=== PATIENT | female | born 1990 | race African-American/Black ===

== ENCOUNTER 2021-10-08 10:19 | Emergency (ER) | payer OTHER, MEDICAID, SELFPAY ==
[2021-10-08 10:34] VITALS: BP 119/72; PULSE 76; RESP 18; TEMP 36.8; O2SAT 99
--- NOTE | 2021-10-08 10:35 | ED.EXTPRO ---
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 She got the stick because of overfill needle boxes and the facility sent her to an urgent care to have the needlestick assessed Related Data Home Medications Medication Instructions Recorded Confirmed No Home Medications 10/08/21 10/08/21 Allergies Allergy/AdvReac Type Severity Reaction Status Date / Time No Known Allergies Allergy Verified 10/08/21 10:45 Review of Systems Review of Systems: CONSTITUTIONAL: Denies fever, chills, sweats. EYES: Denies visual changes, redness, discharge. ENT: Denies rhinorrhea, congestion, sore throat, otalgia. CARDIOVASCULAR: Denies chest pain, palpitations, edema. RESPIRATORY: Denies dyspnea, wheezing, cough GASTROINTESTINAL: Denies abdominal pain, nausea, vomiting, diarrhea. GENITOURINARY: Denies dysuria, hematuria, abnormal discharge SKIN: Denies rash or itching. NEUROLOGIC: Denies numbness, or focal weakness. PSYCHIATRIC: Denies anxiety or depression. Needlestick to left knee and left thumb small needle ford on both PMFSH Family History Family History Other Diabetes mellitus Heart disease High cholesterol Hypertension Social History Social History (Updated 10/08/21 @ 10:50 by Mary Carmen Meredith CNP) Additional smoking assessment comments: Occasional smoker Comments At time of signature, I agree with nursing past medical, surgical, social and family history. There is no relevant family history pertinent to the presenting complaint. Exam Narrative: GENERAL: This is a well-nourished, well-developed patient, in mild distress. HEAD: normocephalic, atraumatic. EYES: PERRL. Sclera clear/white. Vision is grossly intact. EARS: External ears normal,. Hearing grossly intact. NOSE: External nose normal without nasal discharge, nares without redness, no rhinorrhea. THROAT: Mucous membranes moist, NECK: Neck supple, non-tender CARDIOVASCULAR: Regular rate and rhythm without murmurs, gallops, or rubs. RESPIRATORY: Clear to auscultation. Breath sounds equal bilaterally. No wheezes, rales, or rhonchi. GASTROINTESTINAL: Abdomen soft, non-tender, SKIN: warm, intact with no suspicious lesions or rash, good texture and turgor. Small needlestick to left medial knee and left thumb with no induration and no bruising NEURO: awake, alert, and oriented to person, place and time. There were no obvious focal neurologic abnormalities. Steady gait EXTREMITIES: Normal range of motion. BACK: Nontender without deformity Course Course Emergency Course: Patient here with needlestick and left knee and left thumb Discussed protocol that would be used although facility does not have 1 sent to her primary care doctor to get a hepatitis panel and liver enzymes done-explained that should be repeated at day 0, 3 months, 6 months, patient should discuss HIV testing also with provider although this is an older person with no suspicion of having HIV. Discussed there is prophylaxis to be taken for HIV but does have a side effect profile so should discuss this with her PCP Level of Care: Express Care Visit Vital Signs Vital signs: Vital Signs Temperature 98.3 F 10/08/21 10:34 Pulse Rate 76 10/08/21 10:34 Respiratory Rate 18 10/08/21 10:34 Blood Pressure 119/72 10/08/21 10:34 Pulse Oximetry 99 10/08/21 10:34 Oxygen Delivery Room Air 10/08/21 10:34 Temperature 98.3 F 10/08/21 10:34 Pulse Rate 76 10/08/21 10:34 Respiratory Rate 18 10/08/21 10:34 Blood Pressure 119/72 10/08/21 10:34 Pulse Oximetry 99 10/08/21 10:34 Oxygen Delivery Room A
== END 2021-10-08 10:57 | disposition home or self-care (01) ==
PROVIDERS: Emergency Provider Nurse Practitioner; PCP Family Medicine
DX: S61.032A Puncture wound without foreign body of left thumb without damage to nail, initial encounter (principal); W46.1XXA Contact with contaminated hypodermic needle, initial encounter; Y99.0 Civilian activity done for income or pay
CPT/HCPCS: 99211; G0463

== ENCOUNTER 2021-10-08 16:59 | Emergency (ER) | payer OTHER, SELFPAY ==
[2021-10-08 17:04] VITALS: BP 124/73; PULSE 87; RESP 18; TEMP 36.7; O2SAT 98
--- NOTE | 2021-10-08 18:18 | ED.GENADULT ---
HPI - General Adult General Chief complaint: Unspecified Stated complaint: needle stick at work. Tomás Nieves Time Seen by Provider: 10/08/21 18:18 Source: patient Mode of arrival: ambulatory Limitations: no limitations History of Present Illness HPI narrative: The patient is a 31-year-old female presenting to the emergency department for evaluation following a needlestick to her left and right leg. Patient states that she was emptying her sharps bag when a needle inadvertently stuck her in her right leg, and then in her left thumb. Patient denies any current bleeding. Patient is up-to-date on her immunizations. She denies any significant pain. Patient is here per her workplace for needlestick exposure. Related Data Home Medications Medication Instructions Recorded Confirmed No Home Medications 10/08/21 10/08/21 Allergies Allergy/AdvReac Type Severity Reaction Status Date / Time No Known Allergies Allergy Verified 10/08/21 10:45 Review of Systems Review of Systems: CONSTITUTIONAL: Denies fever CARDIOVASCULAR: Denies chest pain RESPIRATORY: Denies cough or dyspnea. GASTROINTESTINAL: Denies abdominal pain SKIN: Denies rash, denies rash or puncture wound MUSCULOSKELETAL: Denies back pain NEUROLOGIC: Denies headache PMFSH Past Medical History Medical History (Updated 10/08/21 @ 18:33 by Heaven Dolan MD) Needlestick injury accident with exposure to body fluid Family History Family History Other Diabetes mellitus Heart disease High cholesterol Hypertension Social History Social History Additional smoking assessment comments: Occasional smoker Exam Narrative: GENERAL: Awake, alert, conversant HEAD: Normocephalic, atraumatic. EYES: PERRLA and EOMI. ENT: Nares clear, no rhinorrhea or epistaxis. Mucous membranes moist. NECK: Supple. CHEST: No respiratory distress, breathing even and non labored HEART: Regular rate, sinus rhythm ABDOMEN:Non distended, non tender EXTREMITIES: Normal range of motion. No edema. SKIN: Warm, dry, no rash. No puncture wounds identified on exam. NEURO:No focal deficits. Alert and oriented x3 Course Vital Signs Vital signs: Vital Signs Temperature 36.7 C 10/08/21 17:04 Pulse Rate 87 10/08/21 17:04 Respiratory Rate 18 10/08/21 17:04 Blood Pressure 124/73 10/08/21 17:04 Pulse Oximetry 98 10/08/21 17:04 Oxygen Delivery Room Air 10/08/21 17:04 Temperature 36.7 C 10/08/21 17:04 Pulse Rate 87 10/08/21 17:04 Respiratory Rate 18 10/08/21 17:04 Blood Pressure 124/73 10/08/21 17:04 Pulse Oximetry 98 10/08/21 17:04 Oxygen Delivery Room Air 10/08/21 17:04 Medical Decision Making MDM Narrative Medical decision making narrative: Patient presenting for evaluation following a needlestick exposure at place of work. Time of assessment, ABCs are intact and vital signs are stable. Patient is well-appearing. Hepatitis panel is normal; Hp B surface antibody positive which is consistent with vaccination status. I advised that patient will need to continue repeat labs with PCP to evaluate for developing infection moving forward. Pt then discharged home in stable condition. No post exposure prophylaxis given risk is not significant exposure. Vital Signs Vital Signs: Vital Signs Temperature 36.7 C 10/08/21 17:04 Pulse Rate 87 10/08/21 17:04 Respiratory Rate 18 10/08/21 17:04 Blood Pressure 124/73 10/08/21 17:04 Pulse Oximetry 98 10/08/21 17:04 Oxygen Delivery Room Air 10/08/21 17:04 Temperature 36.7 C 10/08/21 17:04 Pulse Rate 87 10/08/21 17:04 Respiratory Rate 18 10/08/21 17:04 Blood Pressure 124/73 10/08/21 17:04 Pulse Oximetry 98 10/08/21 17:04 Oxygen Delivery Room Air 10/08/21 17:04 Lab Data Labs: Lab Results 10/08/21 10/08/21 10/08/21 Range/Units
[2021-10-08 19:14] LABS: Hepatitis B Surface Anti Res Positive; Hepatitis C Virus Antibody Negative (Negative)
[2021-10-08 20:14] LABS: HIV 1/2 Ab P24 Ag Result Negative (Negative)
== END 2021-10-08 19:21 | disposition home or self-care (01) ==
PROVIDERS: Emergency Provider Emergency Medicine; PCP Family Medicine
DX: S61.032A Puncture wound without foreign body of left thumb without damage to nail, initial encounter (principal); S71.131A Puncture wound without foreign body, right thigh, initial encounter; W46.1XXA Contact with contaminated hypodermic needle, initial encounter
CPT/HCPCS: 36415; 86703; 86706; 86803; 99283; G0432

== ENCOUNTER 2021-10-27 13:38 | Emergency (ER) | payer BC, MEDICAID, SELFPAY ==
--- NOTE | ~2021-10-27 | XR_ITS ---
XR soft tissue neck DATE: 10/27/2021 16:48 INDICATION: Patient feels like something is stuck in the throat around C4-C5 area TECHNIQUE: AP and lateral views COMPARISON: None FINDINGS: There is reversal of cervical curvature which may be due to muscle spasm. Normal alignment of the cervical spine. Cervical interspaces are preserved. No fracture or dislocation or locked facet or prevertebral soft tissue swelling. Normal epiglottis. Normal tracheal air column. No abnormal sof t tissue swelling or calcification of the cervical soft tissues is evident. Normal sella turcica. IMPRESSION: Negative Reviewed, dictated and finalized at location B. IMPRESSION: Negative
--- NOTE | ~2021-10-27 | XR_ITS ---
EXAMINATION: XR chest 2V 10/27/2021 14:08 INDICATION: Shortness of breath. Chest pain. PROCEDURE: 2 view chest COMPARISON: No prior studies for comparison. FINDINGS: The lungs are clear. The cardiomediastinal silhouette is within normal limits. There are no pleural effusions. There is no pneumothorax suspected. IMPRESSION: 1: NO ACUTE CARDIOPULMONARY DISEASE. Reviewed, dictated and finalized at location A.
[2021-10-27 13:44] VITALS: BP 122/80; PULSE 71; RESP 14; TEMP 36.8; O2SAT 98
--- NOTE | 2021-10-27 13:48 | ECG_ITS ---
Measurements Intervals [place] Rate: 81 P: 55 WV: 147 QRS: 41 QRSD: 82 T: 36 QT: 363 QTc: 423 Interpretive Statements SINUS RHYTHM WITH SINUS ARRHYTHMIA POSSIBLE LEFT ATRIAL ENLARGEMENT BASELINE ARTIFACT- I, II, III BORDERLINE ECG NO PREVIOUS ECG AVAILABLE FOR COMPARISON Electronically Signed On 10-27-2021 14:04:45 CDT by New Flores D.O.
[2021-10-27 15:44] VITALS: O2SAT 98
[2021-10-27 17:26] LABS: Basophils Percent Auto 0.2 % (0.2-1.2); Eosinophils Absolute Auto 0.1 K/mm3 (0-0.3); Eosinophils Percent Auto 0.9 % (0-4.4); Hematocrit 39.1 % (37.0-47.0); Immature Granulocyte Absolute 0.01 K/mm3 (0.00-0.031); Immature Granulocyte Percent A 0.2 % (0-0.5); Lymphocytes Percent Auto 39.8 % (18.3-44.2); Mean Corpuscular HGB Conc 33.2 g/dl (32-36); Mean Corpuscular Hemoglobin 30.3 pg (26-34); Mean Corpuscular Volume 91.1 fl (80-100); Mean Platelet Volume 9.8 fl (7.4-10.4); Monocytes Absolute Auto 0.5 K/mm3 (0.1-0.6); Monocytes Percent Auto 8.3 % (2.6-8.5); Neutrophils Absolute Auto 2.8 K/mm3 (1.3-6.7); Neutrophils Percent Auto 50.6 % (45.5-73.1); Platelet Count Result 213 k/mm3 (150-375); Red Blood Count 4.29 M/mm3 (4.2-5.4); Red Cell Distribution Width 13.2 % (11.5-14.5); White Blood Count 5.5 K/mm3 (4.5-10.0)
[2021-10-27 17:39] LABS: Alanine Aminotransferase 33 U/L (6-35); Albumin Level 4.6 g/dL (3.5-5.1); Alkaline Phosphatase 69 U/L (38-126); Anion Gap 10 mmol/L (8-16); Aspartate Amino Transferase 41 U/L (14-36); Bilirubin,Total 0.8 mg/dL (0.2-1.3); Blood Urea Nitrogen 14 mg/dL (7-17); Calcium 8.9 mg/dL (8.4-10.2); Carbon Dioxide 28 mmol/L (22-30); Chloride 99 mmol/L (98-107); Estimated Glomerular Filt Rate > 60; Glucose 93 mg/dL (65-110); Sodium 137 mmol/L (137-145)
[2021-10-27 18:11] VITALS: BP 128/89; PULSE 75; RESP 16; O2SAT 100
[2021-10-27 18:38] LABS: Troponin I < 0.012 ng/mL (0.000-0.034)
[2021-10-27] MEDS: ACETAMINOPHEN 500 MG TABLET 1000 MG PO (18:44)
[2021-10-27 18:48] LABS: D Dimer 0.45 ug/mL (<0.48)
--- NOTE | 2021-10-27 19:10 | ED.GENADULT ---
HPI - General Adult General Chief complaint: Upper Respiratory Infection Stated complaint: SOB Time Seen by Provider: 10/27/21 16:09 Source: RN notes reviewed History of Present Illness HPI narrative: Patient presents emergency room from home for sore throat. Patient states her symptoms began yesterday states she has pain in her lower mid throat describes as scratchy and feeling like something is stuck in there. States she is able to swallow and has no difficulties talking states she does have a feeling at times that she cannot take a deep breath and feels mildly short of breath she denies any fevers or chills ear pain rhinorrhea cough abdominal pain nausea vomiting or any other symptoms Related Data Allergies Allergy/AdvReac Type Severity Reaction Status Date / Time No Known Allergies Allergy Verified 10/08/21 10:45 Review of Systems Review of Systems: Gen.: Denies fevers or chills ENT: HPI Respiratory: Denies shortness of breath or cough CV: Denies chest pain or palpitations GI: Denies abdominal pain nausea, emesis or diarrhea Musculoskeletal: Denies back pain or muscle pain Neuro: Denies numbness, tingling, weakness or focal weakness Skin: Denies rash Except as documented, all other systems reviewed and negative [facility] Past Medical History Medical History Needlestick injury accident with exposure to body fluid Family History Family History Other Diabetes mellitus Heart disease High cholesterol Hypertension Social History Social History Additional smoking assessment comments: Occasional smoker Exam Narrative: APPEARANCE: No acute distress, nontoxic, resting in bed EYES: EOMI HEENT: Normocephalic, atraumatic TMs clear bilaterally nares patent oral mucosa moist mild erythema no exudate posterior pharynx bilateral tonsils tonsils 2+ no exudate uvula midline tolerating own secretions no trismus Neck: Supple nontender to palpation RESPIRATORY: No respiratory distress Clear to auscultation bilaterally with no rhonchi wheezing or rales. CARDIOVASCULAR: Regular rate and rhythm without murmurs rubs or gallops. ABDOMINAL: Soft, nontender, nondistended, no rebound or guarding MUSCULOSKELETAl: Moves all extremities. No clubbing, cyanosis or edema. NEURO: Awake and alert. Following commands, speech normal, no focal deficits SKIN:: Warm, dry. No rashes lesions or abrasions PSYCHIATRIC: Normal affect/mood, Course Course Emergency Course: Discussed with patient results of workup and diagnosis. Discussed need for follow-up with primary care, proper use of medication, and reasons to return to the emergency department. Patient understands and agrees to current treatment plan Vital Signs Vital signs: Vital Signs Temperature 98.3 F 10/27/21 13:44 Pulse Rate 71 10/27/21 13:44 Respiratory Rate 14 10/27/21 13:44 Blood Pressure 122/80 10/27/21 13:44 Pulse Oximetry 98 10/27/21 13:44 Oxygen Delivery Room Air 10/27/21 13:44 Temperature 98.3 F 10/27/21 13:44 Pulse Rate 75 10/27/21 18:11 Respiratory Rate 16 10/27/21 18:11 Blood Pressure 128/89 10/27/21 18:11 Pulse Oximetry 100 10/27/21 18:11 Oxygen Delivery Room Air 10/27/21 15:44 Medical Decision Making [facility] Narrative Medical decision making narrative: Patient with sore throat feeling short of breath since yesterday and ED chest x-ray neck tissue soft x-ray are negative patient is tolerating own secretions voice is normal no exudate of the pharynx neck is supple there is no masses palpated D-dimer troponin are all negative feel patient to be discharged home with antibiotics follow-up as an outpatient Vital Signs Vital Signs: Vital Signs Temperature 98.3 F 10/27/21 13:44 Pulse Rate 71 10/27/21 13:44 Respiratory Rate 14 10/27/21 13:44 Blood Pressure 122/80
== END 2021-10-27 19:34 | disposition home or self-care (01) ==
PROVIDERS: Emergency Provider Emergency Medicine; PCP Family Medicine
DX: J02.9 Acute pharyngitis, unspecified (principal); F17.200 Nicotine dependence, unspecified, uncomplicated
CPT/HCPCS: 36415; 70360; 71046; 80053; 84484; 85025; 85380; 87081; 87880; 93005; 99284; A9270